=== PATIENT | male | born 1980 | race Caucasian/White ===

== ENCOUNTER 2022-02-06 08:52 | Outpatient (REF) | payer OTHER, SELFPAY ==
[2022-02-06 09:51] LABS: Hematocrit 45.4 % (42.0-52.0); Hemoglobin 15.9 g/dl (14.0-18.0); Mean Corpuscular Hemoglobin 33.6 pg (27.0-33.0); Mean Platelet Volume 8.9 fL (9.4-12.4); Platelet Count 234 X10*3/uL (160-400); Red Blood Count 4.73 X10*6/uL (4.60-5.80); Red Cell Distribution Width 13.2 % (11.0-16.0); White Blood Count 5.8 X10*3/uL (4.8-10.8)
[2022-02-06 10:28] LABS: Alanine Aminotransferase 62 U/L (0-40); Albumin Level 4.6 g/dL (3.5-5.0); Alkaline Phosphatase 67 U/L (39-117); Anion Gap 11 (12-20); Aspartate Amino Transferase 32 U/L (5-37); Bilirubin Total 0.4 mg/dL (0.0-1.0); Blood Urea Nitrogen 9 mg/dL (9-16); Calcium 9.6 mg/dL (8.4-10.2); Carbon Dioxide 33 mmol/L (22-29); Chloride 103 mmol/L (96-108); Cholesterol 210 mg/dL; Estimated Glomerular Filt Rate > 60; Glucose Fasting 94 mg/dL (60-99); HDL Cholesterol 52 mg/dL; Iron 141 mcg/dL (45-160); LDL Cholesterol Calculated 147 mg/dl; Percent Iron Saturation 39 % (15-50); Potassium 4.8 mmol/L (3.3-5.1); Sodium 142 mmol/L (135-145); Total Iron Binding Capacity 359 mcg/dL (228-428); Total Protein 6.8 g/dL (6.5-8.0); Triglycerides 57 mg/dL; Unsaturated Iron Binding 218 ug/dL
[2022-02-06 10:43] LABS: Estimated Average Glucose 85 mg/dL; Hemoglobin A1c % 4.6 %
[2022-02-06 10:52] LABS: TSH reflex Free T4 1.32 uIU/mL (0.32-4.0)
[2022-02-06 10:59] LABS: Phenytoin Dilantin 29.1 ug/mL (10.0-20.0)
== END 2022-02-06 08:53 | disposition home or self-care (01) ==
LOC: HO.LAB 08:52
PROVIDERS: PCP Physician Assistant; Visit Provider Physician Assistant
DX: Z13.29 Encounter for screening for other suspected endocrine disorder (principal); Z13.220 Encounter for screening for lipoid disorders; G40.909 Epilepsy, unspecified, not intractable, without status epilepticus; D50.9 Iron deficiency anemia, unspecified
CPT/HCPCS: 36415; 80053; 80061; 80185; 83036; 83540; 84443; 85027

== ENCOUNTER 2022-02-14 11:52 | Outpatient (REF) | payer OTHER, SELFPAY ==
[2022-02-14 14:39] LABS: Phenytoin Dilantin 27.5 ug/mL (10.0-20.0)
== END 2022-02-14 11:53 | disposition home or self-care (01) ==
LOC: HO.LAB 11:52
PROVIDERS: PCP Physician Assistant; Visit Provider Physician Assistant
DX: G40.909 Epilepsy, unspecified, not intractable, without status epilepticus (principal)
CPT/HCPCS: 36415; 80185

== ENCOUNTER → 2022-04-07 08:12 | Outpatient (BNVA) | payer OTHER, SELFPAY | PROVIDERS: PCP Physician Assistant; Visit Provider Psychiatry & Neurology Neurology | DX: G40.909 Epilepsy, unspecified, not intractable, without status epilepticus (principal); F32.A Depression, unspecified; F41.9 Anxiety disorder, unspecified; Z79.899 Other long term (current) drug therapy | CPT/HCPCS: 99202 ==

== ENCOUNTER 2022-04-21 14:01 | Outpatient (REF) | payer OTHER, SELFPAY ==
--- NOTE | ~2022-04-21 | MR_ITS ---
EXAMINATION: MR BRAIN WITHOUT AND WITH CONTRAST CLINICAL INFORMATION: 42-year-old with epilepsy, unspecified, not intractable, without status epilepticus. COMPARISON: None TECHNIQUE: Multiplanar, multisequence MRI of the brain was obtained before and after the intravenous administration of 7 mL Gadavist. FINDINGS: Brain Volume: Within normal limits within the limitations of qualitative assessment. Structural: Incidental tiny cavum septum pellucidum. Brain and Meninges: DWI sequence demonstrates no restricted diffusion to suggest acute or subacute cerebral ischemia. Gradient refocused imaging demonstrates no evidence for hemorrhage, hemosiderin staining or abnormal mineral deposition. Payton-white matter differentiation is preserved. No intracranial mass lesions, extra-axial fluid collections, significant space-occupying process or mass effect are identified. The brain parenchyma is normal in signal intensity. The mesial temporal lobe structures are bilaterally symmetric and normal in morphology and signal. Ventricles and Subarachnoid Spaces: The ventricular system and subarachnoid spaces are within normal limits without hydrocephalus. Orbital Structures: The visualized orbital structures are grossly unremarkable within the limitations of the study. Vascular: Signal voids are noted in the visualized major intracranial vessels. Osseous Structures, Sinuses/Mastoids, Extracranial Soft Tissues: Unremarkable MR/MR head/brain wo/w con IMPRESSION: Normal MRI of the brain without and with contrast.
== END 2022-04-21 14:02 | disposition home or self-care (01) ==
LOC: HO.MRI 14:01
PROVIDERS: Visit Provider Psychiatry & Neurology Neurology
DX: G40.909 Epilepsy, unspecified, not intractable, without status epilepticus (principal); F32.A Depression, unspecified; F41.9 Anxiety disorder, unspecified
CPT/HCPCS: 70553; A9585

== ENCOUNTER → 2022-05-21 14:50 | Outpatient (BNVA) | payer OTHER, SELFPAY | PROVIDERS: PCP Physician Assistant; Visit Provider Psychiatry & Neurology Neurology | DX: G40.909 Epilepsy, unspecified, not intractable, without status epilepticus (principal); F41.9 Anxiety disorder, unspecified; F32.A Depression, unspecified; Z79.899 Other long term (current) drug therapy | CPT/HCPCS: 99212 ==

== ENCOUNTER 2023-02-19 08:36 | Outpatient (REF) | payer OTHER, SELFPAY ==
[2023-02-19 09:23] LABS: Hematocrit 40.7 % (42.0-52.0); Hemoglobin 14.2 g/dl (14.0-18.0); Mean Corpuscular HGB Conc 34.9 g/dl (31.0-36.0); Mean Corpuscular Hemoglobin 32.8 pg (27.0-33.0); Mean Platelet Volume 9.2 fL (9.4-12.4); Platelet Count 210 X10*3/uL (160-400); Red Blood Count 4.33 X10*6/uL (4.60-5.80); Red Cell Distribution Width 13.2 % (11.0-16.0); White Blood Count 5.3 X10*3/uL (4.8-10.8)
[2023-02-19 10:19] LABS: Valproate 54.6 mcg/mL (50.0-100.0)
[2023-02-19 10:34] LABS: Alanine Aminotransferase 73 U/L (0-40); Alkaline Phosphatase 53 U/L (39-117); Anion Gap 10 (12-20); Aspartate Amino Transferase 43 U/L (5-37); Bilirubin Total 0.9 mg/dL (0.0-1.0); Blood Urea Nitrogen 13 mg/dL (9-16); Calcium 8.8 mg/dL (8.4-10.2); Carbon Dioxide 29 mmol/L (22-29); Chloride 110 mmol/L (96-108); Cholesterol 148 mg/dL; Estimated Glomerular Filt Rate > 60; Glucose Fasting 80 mg/dL (60-99); HDL Cholesterol 39 mg/dL; LDL Cholesterol Calculated 100 mg/dl; Potassium 3.9 mmol/L (3.3-5.1); Sodium 145 mmol/L (135-145); Total Protein 5.6 g/dL (6.5-8.0); Triglycerides 49 mg/dL
[2023-02-19 10:41] LABS: TSH reflex Free T4 0.84 uIU/mL (0.32-4.0)
[2023-02-25 16:58] LABS: Lamotrigine Lamictal 3.3 mcg/mL (2.5-15.0)
== END 2023-02-19 08:37 | disposition home or self-care (01) ==
LOC: HO.LAB 08:36
PROVIDERS: PCP Physician Assistant; Visit Provider Physician Assistant
DX: Z13.29 Encounter for screening for other suspected endocrine disorder (principal); E78.9 Disorder of lipoprotein metabolism, unspecified; G40.909 Epilepsy, unspecified, not intractable, without status epilepticus; Z79.899 Other long term (current) drug therapy
CPT/HCPCS: 36415; 80053; 80061; 80164; 80175; 84443; 85027

== ENCOUNTER 2023-05-28 07:10 | Outpatient (AMB) | payer OTHER, SELFPAY ==
--- NOTE | 2023-05-28 07:12 | A.OFFPC_ITS ---
Intake Visit Reasons: Anxiety follow-up [phone] Allergies No Known Allergies Allergy (Verified 05/28/23 07:20) Medication List - Last Reconciled 05/28/23 by YANELI Alvarez blood pressure test kit-medium As directed divalproex ER (Depakote ER) 1,500 mg PO DAILY lamotrigine 37.5 mg PO BID lisinopril 5 mg PO DAILY Tobacco use date assessed: 05/28/23 Dental Screening Dental Screen Date: 05/28/23 Did you have a dental visit in the last 12 months?: Yes Did you have a dental problem in the last 6 months where you did not have access to dental care?: No Was dental information given to patient?: Patient has dentist HPI HPI Comments History of Present Illness Details Patient is a 43 year male here today for Telehealth Follow up.? Patient has a past medical history significant for depression, anxiety, seizure disorder, tobacco dependency, hypertension and history of alcohol use disorder. Magdiel martin: psychiatrist, was on zolofot x1 week and, patient reports he did like the way it made him feel and he discontinued the medication. Patient reports that he had very low energy difficulty focusing while on the medication. Patient states has upcoming with psychiatry to further discuss medication for anxiety. Patient continues to follow with therapist Dr. Jacques. Patient requesting a medication that is short-acting that helps him manage his anxiety do bring his brain function down. Patient reports he discussed starting hydroxyzine with his neurologist for anxiety management. Patient also reports recent admission to [facility] 05/11- for 3 day EEG monitoring which showed 4 seziures at right temporal onset. Patient reports his sezuire medication doses were increased. Patient continues to follow with Dr. Pace neurologist at [facility]. r [facility] Medical History Femur fracture, right Family History (Updated 05/28/23 @ 07:13 by Teresa Morales [facility]) Mother Depression Mental health disorder Social History (Updated 02/18/23 @ 16:15 by Rigoberto Mitchell PA-C) Housing: Condominium Alcohol intake: former Year quit: 2011 Patient Tobacco Use Status: Former Tobacco user Tobacco use type: Smokeless Tobacco e-Cigarette/Vaping Use: Never Used Second Hand Smoke Exposure: Yes Substance Use Type: Marijuana service: No Current occupational status: unemployed and disabled Current occupational exposures/hazards: No Cognitive needs: Yes Hearing needs: No Vision needs: No Questionnaire PHQ-9 Over the last 2 weeks, how often have you been bothered by any of the following problems? 1. Little interest or pleasure in doing things: not at all 2. Feeling down, depressed, or hopeless: not at all 3. Trouble falling or staying asleep, or sleeping too much: not at all 4. Feeling tired or having little energy: not at all 5. Poor appetite or overeating: not at all 6. Feeling bad about yourself - or that you are a failure or have let yourself or your family down: not at all 7. Trouble concentrating on things, such as reading the newspaper or watching television: not at all 8. Moving or speaking so slowly that other people could have noticed. Or the opposite - being so fidgety or restless that you have been moving around a lot more than usual: not at all 9. Thoughts that you would be better off or of hurting yourself in some way: not at all Total score: 0 Depression Screening Interpretation: Negative 44434 - PHQ-9 Billing: Yes Source: Developed by Drs. Luiz Virgen, Ramesh Story and colleagues, with an educational jorge from [employer]. Thrive Questionnaire Date Thrive assessed: 10/21/22 AUDIT C Alcohol Use Questionnaire (AUDIT-C) 1. How often do you have a drink containing alcohol?: Never 3. How often do you have six or more drinks on one occasion?: Never Total Score: 0 Score Reviewed/Action Taken: No OLIVERIO-7 AMB Questionnaire OLIVERIO-7 Date OLIVERIO - 7 assessed: 02/18/23 Source: Developed by Madison Gore Kurt Kroenke and colleagues, with an educational jorge from [employer]. Review of Systems Neuro Reports confusion and Reports memory loss (due to recent 3 day EEG and s/p 4 seizures while inpatient) Psych Reports anxiety, Reports confusion and Reports memory loss (due to recent 3 day EEG and s/p 4 seizures while inpatient) Physical exam (Primary Care) Vital Signs: unable to complete as this is Telehealth appointment Tobacco/Smoking Status: Tobacco use Status Tobacco use date assessed 05/28/23 05/28/23 07:15 Patient Tobacco Use Status Former Tobacco user 05/28/23 07:15 Tobacco use type Smokeless Tobacco 05/28/23 07:15 e-Cigarette/Vaping Use Never Used 05/28/23 07:15 PHQ-9: PHQ-9 Score PHQ-9: Total score 0 05/28/23 07:27 Depression Screening Interpretation: Negative Thrive Assessment: Date of Thrive Assessment Date Thrive assessed 10/21/22 05/28/23 07:15 Const General: confusion Orientation/consciousness: confusion Neuro General: confusion Telehealth Telehealth Location of provider rendering services: practice address Location of patient: address on file Patient Identification confirmed using: Name, : Yes Telehealth method: voice only (Android) Patient verbally consented to treatment: Yes Patient verbally consented to billing insurance company: Yes Patient informed of any privacy concerns related to visit: Yes Minutes spent on Phone/Video with Pt.: 14 Assessment and Plan Assessment & Plan (1) Anxiety: Code(s): F41.9 - Anxiety disorder, unspecified Plan: Will send hydroxyzine 25 mg t.i.d. as needed to patient's pharmacy. Patient advised to continue to follow with psychiatry and therapist. (2) HTN (hypertension): Code(s): I10 - Essential (primary) hypertension Qualifiers: Hypertension type: primary hypertension Qualified Code(s): I10 - Essential (primary) hypertension Plan: Continue on lisinopril 5 mg daily. Follow low-salt diet and exercise. (3) Seizure disorder: Code(s): G40.909 - Epilepsy, unspecified, not intractable, without status epilepticus Plan: Continue on the Depakote 1500 mg daily and [id number] daily. Continue to follow with Dr. Pace Neurologist. Plan Scheduled follow-up with PCP or follow-up sooner if needed. Medications: New hydroxyzine HCl 25 mg PO TID PRN 20 tabs 0RF itching F41.9 - Anxiety disorder, unspecified Coding Level of Care Code Tele Est Pt Level 4 (41296) Diagnoses Anxiety F41.9 HTN (hypertension) I10 Hypertension type: primary hypertension Seizure disorder G40.909
== END 2023-05-28 07:33 | disposition home or self-care (01) ==
LOC: HO.HMGH 07:10
PROVIDERS: PCP Physician Assistant; Visit Provider Nurse Practitioner Family
DX: F41.9 Anxiety disorder, unspecified (principal); I10 Essential (primary) hypertension; G40.909 Epilepsy, unspecified, not intractable, without status epilepticus
CPT/HCPCS: 99214

== ENCOUNTER 2023-09-01 15:30 | Outpatient (AMB) | payer OTHER, SELFPAY ==
--- NOTE | 2023-09-01 15:37 | MHC.PC.OV ---
Vital Signs 09/01/23 15:38 Height 5 ft 10 in Weight 172 lb 8 oz BMI 24.7 BP 116/82 Blood Pressure Location Lt brachial Position Sitting Pulse 87 Pulse Source Pulse Oximeter Pulse Oximetry (%) 98 Oxygen Delivery Method Room Air Intake Visit Reasons: f/u HTN / Sz disorder Websphere Developer Required: No Accompanied by: Self / Same As Patient Allergies No Known Allergies Allergy (Verified 09/01/23 16:17) Medication List - Last Reconciled 09/01/23 by Rigoberto Mitchell PA-C blood pressure test kit-medium As directed divalproex ER (Depakote ER) 1,500 mg PO DAILY lamotrigine 37.5 mg PO BID lisinopril 5 mg PO DAILY Tobacco use date assessed: 05/28/23 Dental Screening Dental Screen Date: 09/01/23 Did you have a dental visit in the last 12 months?: Yes Did you have a dental problem in the last 6 months where you did not have access to dental care?: No Was dental information given to patient?: Patient has dentist HPI f/u HTN / Sz disorder HPI Details Patient is a 43 y ear male here to y for follow-up vi sit .? Patient gonsalez s a past medical h istory significant for depression, a nxiety, seizure di sorder, tobacco de pendency, hyperten monica and history o f alcohol use diso rder. . Seizure d isorder:? Patient now followed by Ne urology at [facility] ( DR oliveira) and has been started o n lamictal 25mg b. i.d.. He reports h e recently had wha t he thinks was a seizure (December 29) . Patient has had EEGs in brain MRI is without si gnificant findings Did have EEG test ing the summer 023 He has been to ld by his neurolog ist of seizure cavazos s not last more th an 2 minutes then do not seek medica l attention. No n otable trigger to his seizure disord er at this time. W kevin hospitalized for a seizure and April of 2023 he di d have testing darin t did show epilept ic epileptic in hi s left poor region . He reports he re cently did have a seizure and still in a postictal sta ge. Interestingl y he feels very hy per injury after h is seizures. .. A nxiety:? talks to a psyciatrist and a mental mental th erapist. He feels his anxiety is we ll controlled with out medication at this time ? Of not e patient does hav e a distant histor y of alcoholism.? .. Hypertension: ? Patient continue s on low-dose lyn nopril with good e ffect.? Today's bl ood pressure in of fice acceptable. H e otherwise denies any chest discomf ort, dizziness or vision issues. .. Chewing tobacco u se:? Has resolved and completely sta ffed chewing tobac co..? Laboratory Tests 02/06/22 02/19/23 02/19/23 09:24 08:59 08:59 RBC 4.33 L Hgb 14.2 Creatinine 0.91 AST 32 43 H Valproic Acid 54.6 PFSH Medical History Femur fracture, right Family History Mother Depression Mental health disorder [facility] Alcohol intake: former Year quit: 2012 Patient Tobacco Use Status: Former Tobacco user Tobacco use type: Smokeless Tobacco e-Cigarette/Vaping Use: Never Used Second Hand Smoke Exposure: Yes Substance Use Type: Marijuana service: No Current occupational status: unemployed and disabled Current occupational exposures/hazards: No Cognitive needs: Yes Hearing needs: No Vision needs: No Questionnaire PHQ-9 Over the last 2 weeks, how often have you been bothered by any of the following problems? 1. Little interest or pleasure in doing things: not at all 2. Feeling down, depressed, or hopeless: not at all 3. Trouble falling or staying asleep, or sleeping too much: not at all 4. Feeling tired or having little energy: not at all 5. Poor appetite or overeating: not at all 6. Feeling bad about yourself - or that you are a failure or have let yourself or your family down: not at all 7. Trouble concentrating on things, such as reading the newspaper or watching television: not at all 8. Moving or speaking so slowly that other people could have noticed. Or the opposite - being so fidgety or restless that you have been moving around a lot more than usual: not at all 9. Thoughts that you would be better off or of hurting yourself in some way: not at all Total score: 0 Depression Screening Interpretation: Negative Depression Screening Done: Yes 62105 - PHQ-9 Billing: Yes Source: Developed by Drs. Luiz Virgen, Ramesh Story and colleagues, with an educational jorge from [employer]. Thrive Questionnaire Date Thrive assessed: 10/21/22 OLIVERIO-7 AMB Questionnaire OLIVERIO-7 Date OLIVERIO - 7 assessed: 02/18/23 Source: Developed by Drs. Luiz Virgen, Madison Beasley, Ramesh Ortega and colleagues, with an educational jorge from [employer]. Review of Systems Const Denies headache(s) Eyes Denies loss of vision ENT Denies vertigo, Denies dizziness, Denies headache(s) and Denies sore throat Card Denies chest pain, Denies leg edema and Denies lightheadedness Resp Denies cough, Denies hemoptysis and Denies wheezing GI Denies abdominal pain, Denies melena, Denies constipation, Denies diarrhea and Denies vomiting Denies dysuria, Denies urinary frequency and Denies urinary urgency Musc Denies arthralgias, Denies joint swelling, Denies numbness and Denies tingling Neuro Denies Abnormal speech present, Denies behavioral changes, Denies vertigo, Denies dizziness, Denies headache(s), Denies loss of vision, Denies memory loss, Denies numbness, Reports convulsions, Reports seizure-like activity and Denies tingling Psych Denies anxiety, Denies behavioral changes, Denies depression, Denies memory loss and Denies panic attacks Angelito/Lymph Denies easy bleeding and Denies easy bruising Aller/Immun Denies wheezing Physical exam (Primary Care) Vital Signs: Last Vital Signs Pulse 87 09/01/23 15:38 BP 116/82 09/01/23 15:38 Pulse Ox 98 09/01/23 15:38 Oxygen Delivery Method Room Air 09/01/23 15:38 BMI result Body Mass Index 24.7 Tobacco/Smoking Status: Tobacco use Status Tobacco use date assessed 05/28/23 09/01/23 15:39 Patient Tobacco Use Status Former Tobacco user 09/01/23 15:39 Tobacco use type Smokeless Tobacco 09/01/23 15:39 e-Cigarette/Vaping Use Never Used 09/01/23 15:39 PHQ-9: PHQ-9 Score PHQ-9: Total score 0 09/01/23 16:19 Depression Screening Interpretation: Negative Thrive Assessment: Date of Thrive Assessment Date Thrive assessed 10/21/22 09/01/23 15:39 Const General: healthy appearing, no acute distress, alert and awake Nutritional Appearance: well nourished Orientation/consciousness: oriented to person, oriented to place and oriented to time HENMT Ears: TM's normal bilaterally General nose exam: Normal nasal mucous membranes and turbinates present Eyes Conjunctivae: conjunctivae normal Sclerae: sclerae normal Pupils: Equal, round and reactive pupils present Neck Neck: Yes no lymphadenopathy and Yes no JVD Thyroid: Thyroid normal Carotids: no bruits Resp Effort & Inspection: normal respiratory effort and not tachypneic Auscultation: no crackles, no rales, no rhonchi and no wheezes Cardio Rate: regular rate Rhythm: regular rhythm Heart sounds: no murmurs and normal S1 and S2 GI Palpation (GI): Soft to palpation, nontender, no hepatomegaly and no splenomegaly Auscultation: normal bowel sounds Skin General skin exam: no rashes or lesions noted and dry skin Neuro General: oriented to person, oriented to place and oriented to time Cranial nerves: Yes Equal, round and reactive pupils present Speech: No Abnormal speech present Gait exam (Neuro): Normal gait present Motor exam (neuro): no tremor noted Extrem Right upper extremity: full ROM Left upper extremity: full ROM Right lower extremity: full ROM; no edema Left lower extremity: full ROM; no edema Psych Other: Mild tremor noted Mental Status: mental status grossly normal Speech and movement: Normal speech and movement present Affect: normal affect Attitude: cooperative Thought process: Normal thought process present Assessment and Plan Assessment & Plan (1) Seizure disorder: Code(s): G40.909 - Epilepsy, unspecified, not intractable, without status epilepticus Plan: Patient still reporting having seizures even with the use of divalproex and lamotrigine. Reports his neurologist is following his liver enzymes and did have an elevated ammonia level which is thought to be due to his seizure medication. Most recent testing showing left-sided temporal epileptic activity. Brain MRIs without any mass or lesions. No notable cause of his seizure as of yet. Recently did have a seizure and feels he is still in a postictal state. He feels somewhat shaky and tremulous which is often the case after he has a seizure. Seems to be somewhat of a GROUP ACTIVITIES AIDE-sympathetic response --> Will supply him with propanolol 10 mg to use during this time. (2) Anxiety: Code(s): F41.9 - Anxiety disorder, unspecified Plan: Has been working with a mental health therapist. Is now off all anxiety medication and feels he is able to manage his anxiety on his own. He is not interested in starting any medication at this time as he is still trying to work with his neurologist about his seizure disorder. (3) HTN (hypertension): Code(s): I10 - Essential (primary) hypertension Qualifiers: Hypertension type: primary hypertension Qualified Code(s): I10 - Essential (primary) hypertension Plan: Blood pressure acceptable today in office. Will continue his current dose of lisinopril with goal blood pressures to remain below 140/90. Orders: Orders Ammonia 09/01/23 G40.909 - Epilepsy, unspecified, not intractable, without status epilepticus Microalbumin, Random (w Creat) 09/01/23 I10 - Essential (primary) hypertension Comprehensive [place]. Panel Fast 09/01/23 I10 - Essential (primary) hypertension Complete Blood Count no Diff 09/01/23 I10 - Essential (primary) hypertension Medications: New propranolol 10 mg PO BID 10 days PRN 20 tabs 0RF heart palpatations I10 - Essential (primary) hypertension Refilled lisinopril 5 mg PO DAILY 90 tabs 1RF I10 - Essential (primary) hypertension Coding Level of Care Code Est Pt Level 4 (95982) Diagnoses Seizure disorder G40.909 Anxiety F41.9 Primary hypertension I10 Hypertension type: primary hypertension
[2023-09-01 15:38] VITALS: BP 116/82; PULSE 87; O2SAT 98; BMI 24.7
== END 2023-09-01 16:37 | disposition home or self-care (01) ==
PROVIDERS: Visit Provider Physician Assistant
DX: G40.909 Epilepsy, unspecified, not intractable, without status epilepticus (principal); F41.9 Anxiety disorder, unspecified; I10 Essential (primary) hypertension; Z87.891 Personal history of nicotine dependence
CPT/HCPCS: 99214

== ENCOUNTER 2023-09-04 09:02 | Outpatient (REF) | payer OTHER, SELFPAY ==
[2023-09-04 09:27] LABS: Hematocrit 44.2 % (42.0-52.0); Hemoglobin 15.1 g/dl (14.0-18.0); Mean Corpuscular HGB Conc 34.2 g/dl (31.0-36.0); Mean Corpuscular Hemoglobin 33.2 pg (27.0-33.0); Mean Corpuscular Volume 97.1 fL (80.0-98.0); Mean Platelet Volume 9.4 fL (9.4-12.4); Platelet Count 241 X10*3/uL (160-400); Red Blood Count 4.55 X10*6/uL (4.60-5.80); Red Cell Distribution Width 13.1 % (11.0-16.0); White Blood Count 5.9 X10*3/uL (4.8-10.8)
[2023-09-04 09:37] LABS: Ammonia 22 umol/L (13-55)
[2023-09-04 09:58] LABS: Creatinine Urine 165.48 mg/dL; Microalbum/Creatinine Ratio Ur 3.6 ug/mg cr (<30)
[2023-09-04 10:02] LABS: Alanine Aminotransferase 49 U/L (0-40); Albumin Level 3.7 g/dL (3.5-5.0); Alkaline Phosphatase 47 U/L (39-117); Anion Gap 10 (12-20); Aspartate Amino Transferase 32 U/L (5-37); Bilirubin Total 0.8 mg/dL (0.0-1.0); Blood Urea Nitrogen 10 mg/dL (9-16); Carbon Dioxide 29 mmol/L (22-29); Chloride 106 mmol/L (96-108); Estimated Glomerular Filt Rate > 60; Glucose Fasting 86 mg/dL (60-99); Potassium 4.4 mmol/L (3.3-5.1); Sodium 141 mmol/L (135-145); Total Protein 6.3 g/dL (6.5-8.0)
== END 2023-09-04 09:03 | disposition home or self-care (01) ==
LOC: HO.LAB 09:02
PROVIDERS: PCP Physician Assistant; Visit Provider Physician Assistant
DX: G40.909 Epilepsy, unspecified, not intractable, without status epilepticus (principal); I10 Essential (primary) hypertension
CPT/HCPCS: 36415; 80053; 82043; 82140; 82570; 85027

== ENCOUNTER 2024-03-22 13:27 | Outpatient (AMB) | payer MEDICARE, SELFPAY ==
[2024-03-22 13:57] VITALS: BP 100/80; PULSE 84; O2SAT 96; BMI 26.8
--- NOTE | 2024-03-22 13:57 | MHC.PC.OV ---
Vital Signs 03/22/24 13:57 Height 5 ft 10 in Weight 186 lb 8 oz BMI 26.8 BP 100/80 Blood Pressure Location Lt brachial Position Sitting Pulse 84 Pulse Source Pulse Oximeter Pulse Oximetry (%) 96 Oxygen Delivery Method Room Air Intake Visit Reasons: PE/Tremors F/U Allergies No Known Allergies Allergy (Verified 03/22/24 14:21) Medication List - Last Reconciled 03/22/24 by Rigoberto Mitchell PA-C divalproex ER (Depakote ER) 1,500 mg PO DAILY lamotrigine 37.5 mg PO BID lisinopril 5 mg PO DAILY propranolol 10 mg PO BID PRN 10 days Tobacco use date assessed: 05/28/23 Dental Screening Dental Screen Date: 09/01/23 HPI PE/Tremors F/U HPI Details Patient is a 44-year-old male here today for routine annual physical .? Patient has a past medical history significant for depression, anxiety, seizure disorder, tobacco dependency, hypertension and history of alcohol use disorder. .Seizure disorder:? Patient now followed by Neurology at [facility] ( DR oliveira) and has been started on lamictal 37.5 mg b.i.d and divalproex 1500 daily.. He has not had a seizure in about 3 months. Patient has had EEGs in brain MRI is without significant findings He has been told by his neurologist of seizure does not last more than 2 minutes then do not seek medical attention. No notable trigger to his seizure disorder at this time. Of note he has developed a tremor that seems to be intentional and not at rest. He is spoken to his neurologist about this though no treatment at this time. ..Anxiety:? talks to a psyciatrist and a mental mental therapist. He feels his anxiety is well controlled without medication at this time ? Of note patient does have a distant history of alcoholism.? .. ..Hypertension:? Patient continues on low-dose lisinopril with good effect.? Today's blood pressure in office acceptable. He otherwise denies any chest discomfort, dizziness or vision issues. .. ..Chewing tobacco use: He reports he still does use chewing tobacco a few times a week.. colon cancer screening; willing to do colonoscopy vaccines: up-to-date COVID vaccine , needs up-to-date tetanus vaccine [facility] Medical History Femur fracture, right Family History Mother Depression Mental health disorder Social History [facility] Alcohol intake: former Year quit: 2012 Patient Tobacco Use Status: Former Tobacco user Tobacco use type: Smokeless Tobacco e-Cigarette/Vaping Use: Never Used Second Hand Smoke Exposure: Yes Substance Use Type: Marijuana service: No Current occupational status: unemployed and disabled Current occupational exposures/hazards: No Cognitive needs: Yes Hearing needs: No Vision needs: No Questionnaire PHQ-9 Over the last 2 weeks, how often have you been bothered by any of the following problems? 1. Little interest or pleasure in doing things: not at all 2. Feeling down, depressed, or hopeless: not at all 3. Trouble falling or staying asleep, or sleeping too much: not at all 4. Feeling tired or having little energy: not at all 5. Poor appetite or overeating: not at all 6. Feeling bad about yourself - or that you are a failure or have let yourself or your family down: not at all 7. Trouble concentrating on things, such as reading the newspaper or watching television: not at all 8. Moving or speaking so slowly that other people could have noticed. Or the opposite - being so fidgety or restless that you have been moving around a lot more than usual: not at all 9. Thoughts that you would be better off or of hurting yourself in some way: not at all Total score: 0 Depression Screening Interpretation: Negative Depression Screening Done: Yes 81411 - PHQ-9 Billing: Yes Source: Developed by Drs. Luiz Virgen, Madison Beasley, Ramesh Ortega and colleagues, with an educational jorge from [employer]. Thrive Questionnaire Date Thrive assessed: 03/22/24 I am a: Patient What is your living situation today?: I have a steady place to live Within the past 12 months, did the food you bought not last and you didn't have the money to get more?: Never true Within the past 12 months, did you worry whether your food would run out before you got money to buy more?: Never true Do you have trouble paying for medicines?: No Do you have trouble getting transportation to medical appointments?: No Do you have trouble paying your heating and electricity bill?: No Do you have trouble taking care of your child, family member or friend?: No Do you have trouble with day-to-day activities such as bathing, preparing meals, shopping, managing finances, etc.?: No Are you currently unemployed and looking for a job?: No Are you interested in more education?: No Please select the resources that you would like help with: None Currently or been in a relationship where the following occur: no concerns reported THRIVE Score: 0 AUDIT C Alcohol Use Questionnaire (AUDIT-C) 1. How often do you have a drink containing alcohol?: Never 3. How often do you have six or more drinks on one occasion?: Never Total Score: 0 Score Reviewed/Action Taken: No OLIVERIO-7 AMB Questionnaire OLIVERIO-7 Date OLIVERIO - 7 assessed: 03/22/24 Feeling nervous, anxious, or on edge: 3 = Nearly every day Not being able to stop or control worryin = Nearly every day Worrying too much about different things: 3 = Nearly every day Trouble relaxin = Nearly every day Being so restless that it is hard to sit still: 3 = Nearly every day Becoming easily annoyed or irritable: 3 = Nearly every day Feeling afraid as if something awful might happen: 0 = Not at all Total OLIVERIO-7 score (0-4 normal; 5-9 mild; 10-14 moderate; 15-21 severe): 18 Source: Developed by Drs. Luiz Virgen, Madison Beasley, Ramesh Ortega and colleagues, with an educational jorge from [employer]. OLIVERIO-7 Assessment Billing OLIVERIO-7 Assessment Tool: OLIVERIO-7 Assessment 09233 Review of Systems Const Denies body aches, Denies chills, Denies excessive sweating, Denies fatigue, Denies fever(s) and Denies headache(s) Eyes Denies blurry vision ENT Denies dysphagia, Denies vertigo, Denies dizziness, Denies headache(s), Denies hearing loss and Denies tinnitus Card Denies chest pain, Denies chest pain with activity, Denies syncope, Denies irregular heart rhythm and Denies dyspnea Resp Denies chest congestion, Denies cough, Denies hemoptysis, Denies dyspnea and Denies wheezing GI Denies abdominal pain, Denies melena, Denies hematochezia, Denies coffee ground emesis, Denies dysphagia, Denies diarrhea, Denies nausea and Denies vomiting Denies difficulty urinating, Denies dysuria, Denies urinary frequency, Denies urinary hesitancy and Denies urinary urgency Musc Denies arthralgias, Denies limited range of motion, Denies muscle cramps and Denies muscle weakness Skin/Breast Denies rash and Denies skin ulcer Neuro Denies Abnormal speech present, Denies confusion, Denies vertigo, Denies dizziness, Denies syncope, Denies headache(s), Denies memory loss and Denies seizure-like activity Psych Denies anxiety, Denies confusion, Denies depression, Denies memory loss, Denies panic attacks and Denies paranoia Endo Denies excessive sweating, Denies fatigue, Denies flushing, Denies polydipsia and Denies polyuria Aller/Immun Denies wheezing Physical exam (Primary Care) Vital Signs: Last Vital Signs Pulse 84 03/22/24 13:57 BP 100/80 03/22/24 13:57 Pulse Ox 96 03/22/24 13:57 Oxygen Delivery Method Room Air 03/22/24 13:57 BMI result Body Mass Index 26.8 Tobacco/Smoking Status: Tobacco use Status Tobacco use date assessed 05/28/23 03/22/24 14:01 Patient Tobacco Use Status Former Tobacco user 03/22/24 14:01 Tobacco use type Smokeless Tobacco 03/22/24 14:01 e-Cigarette/Vaping Use Never Used 03/22/24 14:01 PHQ-9: PHQ-9 Score PHQ-9: Total score 0 03/22/24 16:54 Depression Screening Interpretation: Negative Thrive Assessment: Date of Thrive Assessment Date Thrive assessed 03/22/24 03/22/24 14:01 Currently or been in a relationship where the following occur: no concerns reported Const General: cooperative, comfortable, no acute distress, alert and awake; No confusion Orientation/consciousness: oriented to person, oriented to place, patient oriented x3 and No confusion HENMT Head: Yes normocephalic Ears: external ears normal and TM's normal bilaterally Face and sinus: No sinus tenderness Mouth: Normal oral and palatal mucosa present and tongue normal Teeth and gingiva: dentition normal and gingiva normal Throat: Yes posterior oropharynx normal, Yes tonsils normal and Yes uvula midline Eyes Conjunctivae: conjunctivae normal Sclerae: sclerae normal Pupils: Equal, round and reactive pupils present EOM: EOMs intact bilaterally Direct Ophthalmoscopy: No no photophobia Neck Neck: Yes no lymphadenopathy, No tender and Yes no JVD Thyroid: Thyroid normal Carotids: no bruits Chest Chest palpation & inspection: no tenderness Resp Effort & Inspection: normal respiratory effort, no audible wheezes, not labored and no stridor Auscultation: no crackles, no rales, no rhonchi and no wheezes Cardio Jugular venous distension: no JVD Rate: regular rate, not bradycardic and not tachycardic Rhythm: regular rhythm Bruits: no carotid bruits Peripheral pulses: Peripheral pulses 2+ throughout GI Inspection: Yes normal to inspection, No abdominal wall ecchymosis and No visible herniation Palpation (GI): Soft to palpation, nontender, no guarding, not rigid and No hepatosplenomegaly present Auscultation: normoactive bowel sounds General: Yes no CVA tenderness Back/Spine/Pelvis Back: no CVA tenderness and No back tenderness Cervical Spine: cervical ROM normal Thoracic/Lumbar Spine: thoracic and lumbar spine normal to inspection, straight leg raise negative bilaterally, No thoraco-lumbar ROM limited and No lumbar spinal tenderness Skin Lesions: no lesions Rashes: no rashes Wounds: no wounds Neuro Other: INTENTIONAL TREMOR NOTED General: oriented to person, oriented to place, patient oriented x3, CN's II-XI intact bilaterally and No confusion Cranial nerves: Yes Equal, round and reactive pupils present and Yes Normal accommodation reflex present Cognition (Neuro): normal cognition Speech: No Abnormal speech present Gait exam (Neuro): Normal gait present Motor exam (neuro): 5/5 motor strength present throughout and Tremors during motor activity present Extrem Right upper extremity: full ROM; no cyanosis Left upper extremity: full ROM; no cyanosis Right lower extremity: no edema Left lower extremity: no edema Psych Appearance: grossly normal Mental Status: mental status grossly normal Affect: normal affect Attitude: cooperative Thought process: Normal thought process present Immunizations Boostrix Tdap 2.5 Lf unit-8 mcg-5 Lf/0.5 mL intramuscular syringe Performing Provider: Rigoberto Mitchell PA-C Performing Location: [facility] [place] [facility] Administered by: JE Fuentes on 03/22/24 14:48 Dose Route Admin Location Dispensed Lot Number Expiration Date NDC Methodologist 0.5 mL IM Left Deltoid 0.5 mL [id number] 05/19/26 74440-521-25 [employer] VIS Given Date VIS Provided VIS Publication Date 03/22/24 Single Vaccine 21 Eligibility Eligibility Date Funding Source Not VFC Eligible 03/22/24 Private Assessment and Plan Assessment & Plan (1) Annual physical exam: Code(s): Z00.00 - Encounter for general adult medical examination without abnormal findings (2) Seizure disorder: Code(s): G40.909 - Epilepsy, unspecified, not intractable, without status epilepticus Plan: Patient still reporting having seizures even with the use of divalproex and lamotrigine. Reports his neurologist is following his liver enzymes and did have an elevated ammonia level which is thought to be due to his seizure medication. Most recent testing showing left-sided temporal epileptic activity. Brain MRIs without any mass or lesions. No notable cause of his seizure as of yet. HAS NOT A SEIZURE IN NEARLY 3 MONTHS (3) Anxiety: Code(s): F41.9 - Anxiety disorder, unspecified Plan: Has been working with a mental health therapist. Is now off all anxiety medication and feels he is able to manage his anxiety on his own. He is not interested in starting any medication at this time as he is still trying to work with his neurologist about his seizure disorder. (4) HTN (hypertension): Code(s): I10 - Essential (primary) hypertension Qualifiers: Hypertension type: primary hypertension Qualified Code(s): I10 - Essential (primary) hypertension Plan: Blood pressure acceptable today in office. Will continue his current dose of lisinopril with goal blood pressures to remain below 140/90. (5) Colon cancer screening: Code(s): Z12.11 - Encounter for screening for malignant neoplasm of colon (6) Chewing tobacco nicotine dependence: Code(s): F17.220 - Nicotine dependence, chewing tobacco, uncomplicated Qualifiers: Substance use status: uncomplicated Qualified Code(s): F17.220 - Nicotine dependence, chewing tobacco, uncomplicated Plan: We did briefly discuss chewing tobacco and patient does understand he needs to completely quit. Does use chewing tobacco a few times a week and is trying to cut down the amount and frequency he is using. Orders: Orders Microalbumin, Random (w Creat) 03/22/24 I10 - Essential (primary) hypertension Comprehensive [place]. Panel Fast 03/22/24 I10 - Essential (primary) hypertension Lipid Panel 03/22/24 E78.9 - Disorder of lipoprotein metabolism, unspecified TDaP Immunization 03/22/24 Z12.11 - Encounter for screening for malignant neoplasm of colon, Z23 - Encounter for immunization Referrals Gastroenterology Referral Z12.11 - Encounter for screening for malignant neoplasm of colon Medications: Discontinued propranolol Discontinued Reason: Doctor's Order 10 mg PO BID 10 days PRN 20 tabs 0RF heart palpatations I10 - Essential (primary) hypertension Patient Instructions: Goal: To remain seizure-free, blood pressure to remain below 140/90. Barriers: Adherence to physical activity and healthy eating habits Coding Level of Care Code Est Pt Prev Care 40-64y(66484) Diagnoses Annual physical exam Z00.00 Seizure disorder G40.909 Anxiety F41.9 Primary hypertension I10 Hypertension type: primary hypertension Colon cancer screening Z12.11 Chewing tobacco nicotine dependence without complication F17.220 Substance use status: uncomplicated Additional Codes OLIVERIO-7 Assessment Billing - OLIVERIO-7 Assessment Tool: OLIVERIO-7 Assessment 66374 ([id number])
== END 2024-03-22 16:22 | disposition home or self-care (01) ==
PROVIDERS: PCP Physician Assistant; Visit Provider Physician Assistant
DX: Z23 Encounter for immunization (principal)
CPT/HCPCS: 90471; 90715; 99214

== ENCOUNTER 2024-03-30 09:17 | Outpatient (REF) | payer MEDICARE, MEDICAID, SELFPAY ==
[2024-03-30 11:08] LABS: Alanine Aminotransferase 24 U/L (0-40); Albumin Level 4.2 g/dL (3.5-5.0); Alkaline Phosphatase 61 U/L (39-117); Anion Gap 12 (12-20); Aspartate Amino Transferase 25 U/L (5-37); Bilirubin Total 0.5 mg/dL (0.0-1.0); Blood Urea Nitrogen 8 mg/dL (9-16); Calcium 9.8 mg/dL (8.4-10.2); Carbon Dioxide 31 mmol/L (22-29); Chloride 105 mmol/L (96-108); Cholesterol 148 mg/dL (<200); Estimated Glomerular Filt Rate > 60; Glucose Fasting 87 mg/dL (60-99); HDL Cholesterol 35 mg/dL (>40); LDL Cholesterol Calculated 94 mg/dL (<100); Potassium 4.4 mmol/L (3.3-5.1); Sodium 144 mmol/L (135-145); Total Protein 6.5 g/dL (6.5-8.0); Triglycerides 98 mg/dL (<150)
== END 2024-03-30 09:18 | disposition home or self-care (01) ==
LOC: HO.LAB 09:17
PROVIDERS: PCP Physician Assistant; Visit Provider Physician Assistant
DX: E78.9 Disorder of lipoprotein metabolism, unspecified (principal); I10 Essential (primary) hypertension
CPT/HCPCS: 36415; 80053; 80061

== ENCOUNTER 2024-07-11 09:43 | Outpatient (AMB) | payer MEDICARE, SELFPAY ==
[2024-07-11 09:46] VITALS: BP 118/90; PULSE 84; O2SAT 97; BMI 26.9
--- NOTE | 2024-07-11 09:46 | MHC.OFFVIS ---
Vital Signs 07/11/24 09:46 Height 5 ft 10 in Weight 187 lb 6.287 oz BMI 26.9 BP 118/90 H Blood Pressure Location Rt brachial Position Sitting Pulse 84 Pulse Source Pulse Oximeter Pulse Oximetry (%) 97 Oxygen Delivery Method Room Air Intake Visit Reasons: Colonoscopy Screening Intake Note: Pato presents in office today for a scheduled colo consult. CC; Pt confirms that this is an initial, routine priority colo procedure. Pt reports that they are concerned about possibility of seizures, although, pt has no documented medication interactions to be concerned with. Pt does have documented hx of seizures. Pt would like to have procedure earlier in the morning if possible based on the medications and the routine that they are taking currently. 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 male with past medical history of hypertension and seizure disorder is here today for pre colonoscopy screening.? Patient was sent to us by his PCP.? This is his first colonoscopy screening.? Patient denies any gastrointestinal symptoms in the past or at present.? Denies any personal or family history of gastrointestinal disease, colon polyps, or CRC.? Denies history of difficulty with sedation or anesthesia in the past.? Negative for history of sleep apnea.? Denies any history of cardiac, renal, pulmonary, or hepatic disease.?? No history of infectious? diseases like hepatitis A, B, C, HIV or tuberculosis.? Patient is not on any anticoagulation [facility] Medical History Femur fracture, right Family History Mother Depression Mental health disorder Social History Housing: Condominium Alcohol intake: former Year quit: 2011 Patient Tobacco Use Status: Former Tobacco user Tobacco use type: Smokeless Tobacco e-Cigarette/Vaping Use: Never Used Second Hand Smoke Exposure: Yes Substance Use Type: Marijuana service: No Current occupational status: unemployed and disabled Current occupational exposures/hazards: No Cognitive needs: Yes Hearing needs: No Vision needs: No Review of Systems Const Denies weight gain and Denies weight loss ENT Reports no additional complaints, Denies dysphagia and Denies odynophagia Card Reports no additional complaints Resp Reports no additional complaints GI Denies abdominal pain, Denies belching, Denies melena, Denies bloating, Denies change in bowel habits, Denies dysphagia, Denies excessive flatus, Denies dyspepsia, Denies heartburn, Denies diarrhea, Denies loose stools, Denies nausea, Denies odynophagia and Denies vomiting Reports no additional complaints Musc Reports no additional complaints Neuro Reports no additional complaints Psych Reports no additional complaints Endo Reports no additional complaints Physical Exam Vital Signs: Last Vital Signs Pulse 84 07/11/24 09:46 BP 118/90 H 07/11/24 09:46 Pulse Ox 97 07/11/24 09:46 Oxygen Delivery Method Room Air 07/11/24 09:46 BMI result Body Mass Index 26.9 Const General: healthy appearing, no acute distress and well developed Nutritional Appearance: well nourished Orientation/consciousness: patient oriented x3 Resp Effort & Inspection: normal respiratory effort, able to speak in complete sentences, no tracheal deviation and symmetric chest movement Auscultation: clear to auscultation bilaterally Cardio Rate: regular rate GI Inspection: Yes normal to inspection and No distended Palpation (GI): Soft to palpation, not firm, nontender and No hepatosplenomegaly present Auscultation: normal bowel sounds General: Yes no CVA tenderness Back/Spine/Pelvis Back: no CVA tenderness Skin General skin exam: elasticity normal, turgor normal and dry skin Neuro General: patient oriented x3 Psych Appearance: grossly normal Mental Status: mental status grossly normal Assessment & Plan Assessment & Plan (1) Colon cancer screening: Code(s): Z12.11 - Encounter for screening for malignant neoplasm of colon Category: Medical Plan Patient denies any GI, cardiac or respiratory symptoms.? Denies any issues with anesthesia in the past.? Denies any history of sleep apnea.? No history infectious diseases in the past or present.? Not on any anticoagulation therapy.? Patient has a history of seizure for over 10 years. Sees neurologist in [place] Dr. Pace. Has appointment with him on September 13. Patient will talk to him about being cleared for procedure. Last seizure 6 months ago. Patient is currently taking divalproex and lamotrigine. No family or personal history of colon cancer or polyps.? Patient denies melena, hematochezia, unintentional weight loss or ribbon like stools.? Discussed at length the pre-procedure,? prep, diet & medications as well as what to expect prior, during and after the procedure.?? Stressed the importance of good bowel prep.? Recommended the use of Vaseline or Calmoseptine OTC & baby wipes with bowel movements to promote comfort.? ?Patient verbalizes understanding and agrees to plan of care.? He was given the opportunity to ask questions and all questions answered.? We will see him after the procedure.? Medications: New polyethylene glycol 3350 (Miralax) As directed by gastroenterology department at [facility] 238 grams PO ONCE 238 grams 0RF Z12.11 - Encounter for screening for malignant neoplasm of colon bisacodyl (Dulcolax (bisacodyl)) take 4 tabs at noon the day before your colonoscopy 20 mg (4 x 5 mg) PO ONCE 1 day 4 tabs 0RF Z12.11 - Encounter for screening for malignant neoplasm of colon Coding Level of Care Code New Pt Level 3 (45771) Diagnoses Colon cancer screening Z12.11 Time Spent (min) 40 Comment 30 minutes spent with patient and additional 10 minutes spent reviewing his records
== END 2024-07-11 10:34 | disposition home or self-care (01) ==
PROVIDERS: PCP Physician Assistant; Visit Provider Nurse Practitioner Family
DX: Z01.818 Encounter for other preprocedural examination (principal); Z12.11 Encounter for screening for malignant neoplasm of colon
CPT/HCPCS: 99024

== ENCOUNTER → 2024-07-11 09:43 | Outpatient (BNVA) | payer MEDICARE, SELFPAY | PROVIDERS: PCP Physician Assistant; Visit Provider Nurse Practitioner Family | DX: Z01.818 Encounter for other preprocedural examination (principal) | CPT/HCPCS: 99212 ==

== ENCOUNTER 2024-09-21 13:51 | Outpatient (AMB) | payer MEDICARE, MEDICAID, SELFPAY ==
[2024-09-21 14:22] VITALS: BP 122/84; PULSE 100; O2SAT 99; BMI 27.1
--- NOTE | 2024-09-21 14:22 | MHC.PC.OV ---
Vital Signs 09/21/24 14:22 Height 5 ft 10 in Weight 189 lb BMI 27.1 BP 122/84 Blood Pressure Location Lt brachial Position Sitting Pulse 100 Pulse Source Pulse Oximeter Pulse Oximetry (%) 99 Oxygen Delivery Method Room Air Intake Visit Reasons: f/u Sz disorder Inventory Technician Required: No Accompanied by: Self / Same As Patient Allergies No Known Allergies Allergy (Verified 09/21/24 14:39) Medication List - Last Reconciled 09/21/24 by Rigoberto Mitchell PA-C bisacodyl (Dulcolax (bisacodyl)) 20 mg (4 x 5 mg) PO ONCE 1 day divalproex ER 250 mg PO DAILY lamotrigine 37.5 mg PO BID lisinopril 5 mg PO DAILY polyethylene glycol 3350 (Miralax) 238 grams PO ONCE topiramate 100 mg PO BID Tobacco use date assessed: 09/21/24 Dental Screening Dental Screen Date: 09/21/24 Did you have a dental visit in the last 12 months?: Yes Did you have a dental problem in the last 6 months where you did not have access to dental care?: No Was dental information given to patient?: Patient has dentist HPI f/u Sz disorder HPI Details Patient is a 44-year-old male here today for follow-up visit .? Patient has a past medical history significant for depression, anxiety, seizure disorder, tobacco dependency, hypertension and history of alcohol use disorder. .Seizure disorder:? Patient now followed by Neurology at [facility] ( DR oliveira) and has been started on lamictal 37.5 mg b.i.d and divalproex 1500 daily.. He has not had a seizure in about 2 months. Patient has had EEGs in brain MRI is without significant findings. He has been recently started on topiramate over the last 2 weeks does report getting better sleep and being less hungry. ..Anxiety:? talks to a psyciatrist and a mental mental therapist. He feels his anxiety is well controlled without medication at this time ? Of note patient does have a distant history of alcoholism.? .. ..Hypertension:? Patient continues on low-dose lisinopril with good effect.? Today's blood pressure in office acceptable. He otherwise denies any chest discomfort, dizziness or vision issues. .. [facility] Medical History Femur fracture, right Family History Mother Depression Mental health disorder Social History [facility] Alcohol intake: former Year quit: 2012 Patient Tobacco Use Status: Former Tobacco user Tobacco use type: Smokeless Tobacco e-Cigarette/Vaping Use: Never Used Second Hand Smoke Exposure: Yes Substance Use Type: Marijuana service: No Current occupational status: unemployed and disabled Current occupational exposures/hazards: No Cognitive needs: Yes Hearing needs: No Vision needs: No Questionnaire Thrive Questionnaire Date Thrive assessed: 03/22/24 OLIVERIO-7 AMB Questionnaire OLIVERIO-7 Date OLIVERIO - 7 assessed: 03/22/24 Source: Developed by Drs. Luiz Virgen, Madison Beasley, Ramesh Ortega and colleagues, with an educational jorge from [employer]. Review of Systems Const Denies headache(s) Eyes Denies loss of vision ENT Denies vertigo, Denies dizziness, Denies headache(s) and Denies sore throat Card Denies chest pain, Denies leg edema and Denies lightheadedness Resp Denies cough, Denies hemoptysis and Denies wheezing GI Denies abdominal pain, Denies melena, Denies constipation, Denies diarrhea and Denies vomiting Denies dysuria, Denies urinary frequency and Denies urinary urgency Musc Denies arthralgias, Denies joint swelling, Denies numbness and Denies tingling Neuro Denies Abnormal speech present, Denies behavioral changes, Denies vertigo, Denies dizziness, Denies headache(s), Denies loss of vision, Denies memory loss, Denies numbness and Denies tingling Psych Denies anxiety, Denies behavioral changes, Denies depression, Denies memory loss and Denies panic attacks Angelito/Lymph Denies easy bleeding and Denies easy bruising Aller/Immun Denies wheezing Physical exam (Primary Care) Vital Signs: Last Vital Signs Pulse 100 09/21/24 14:22 BP 122/84 09/21/24 14:22 Pulse Ox 99 09/21/24 14:22 Oxygen Delivery Method Room Air 09/21/24 14:22 BMI result Body Mass Index 27.1 Tobacco/Smoking Status: Tobacco use Status Tobacco use date assessed 09/21/24 09/21/24 14:28 Patient Tobacco Use Status Former Tobacco user 09/21/24 14:23 Tobacco use type Smokeless Tobacco 09/21/24 14:23 e-Cigarette/Vaping Use Never Used 09/21/24 14:23 Thrive Assessment: Date of Thrive Assessment Date Thrive assessed 03/22/24 09/21/24 14:23 Const General: healthy appearing, no acute distress, alert and awake Nutritional Appearance: well nourished Orientation/consciousness: oriented to person, oriented to place and oriented to time HENMT Ears: TM's normal bilaterally General nose exam: Normal nasal mucous membranes and turbinates present Eyes Conjunctivae: conjunctivae normal Sclerae: sclerae normal Pupils: Equal, round and reactive pupils present Neck Neck: Yes no lymphadenopathy and Yes no JVD Thyroid: Thyroid normal Carotids: no bruits Resp Effort & Inspection: normal respiratory effort and not tachypneic Auscultation: no crackles, no rales, no rhonchi and no wheezes Cardio Rate: regular rate Rhythm: regular rhythm Heart sounds: no murmurs and normal S1 and S2 GI Palpation (GI): Soft to palpation, nontender, no hepatomegaly and no splenomegaly Auscultation: normal bowel sounds Skin General skin exam: no rashes or lesions noted and dry skin Neuro Other: MILD NOTABLE INTENTIONAL TREMOR General: oriented to person, oriented to place and oriented to time Cranial nerves: Yes Equal, round and reactive pupils present Speech: No Abnormal speech present Gait exam (Neuro): Normal gait present Extrem Right upper extremity: full ROM Left upper extremity: full ROM Right lower extremity: full ROM; no edema Left lower extremity: full ROM; no edema Psych Mental Status: mental status grossly normal Speech and movement: Normal speech and movement present Affect: normal affect Attitude: cooperative Thought process: Normal thought process present Coding Level of Care Code Est Pt Level 4 (70886) Diagnoses Primary hypertension I10 Hypertension type: primary hypertension Seizure disorder G40.909 Borderline high cholesterol E78.9 Assessment & Plan Assessment & Plan (1) HTN (hypertension): Code(s): I10 - Essential (primary) hypertension Category: Medical Qualifiers: Hypertension type: primary hypertension Qualified Code(s): I10 - Essential (primary) hypertension Plan: Patient's blood pressure was acceptable today in office. Will continue current dose of lisinopril with goal blood pressure to remain below 140/90. (2) Seizure disorder: Code(s): G40.909 - Epilepsy, unspecified, not intractable, without status epilepticus Category: Medical Plan: Patient continues to follow [facility] neurology (Dr. Oliveira) and is on several different seizure medication for his epilepsy. Was recently started Topamax. He reports his last seizure was about 2 months ago (3) Borderline high cholesterol: Code(s): E78.9 - Disorder of lipoprotein metabolism, unspecified Category: Medical Plan: Patient has a history of borderline high cholesterol and has made changes in his diet and lifestyle which has helped him manage his high cholesterol. Most recent lipid panel showing excellent control of his total cholesterol and LDL. Will continue to follow Orders: Orders Lipid Panel Today E78.9 - Disorder of lipoprotein metabolism, unspecified Comprehensive [place]. Panel Fast Today E78.9 - Disorder of lipoprotein metabolism, unspecified Complete Blood Count no Diff Today I10 - Essential (primary) hypertension Microalbumin, Random (w Creat) Today I10 - Essential (primary) hypertension
== END 2024-09-21 14:47 | disposition home or self-care (01) ==
PROVIDERS: PCP Physician Assistant; Visit Provider Physician Assistant
DX: I10 Essential (primary) hypertension (principal); G40.909 Epilepsy, unspecified, not intractable, without status epilepticus; E78.9 Disorder of lipoprotein metabolism, unspecified

== ENCOUNTER → 2024-09-21 13:51 | Outpatient (BNVA) | payer MEDICARE, SELFPAY | PROVIDERS: PCP Physician Assistant; Visit Provider Physician Assistant | DX: I10 Essential (primary) hypertension (principal); E78.9 Disorder of lipoprotein metabolism, unspecified; G40.909 Epilepsy, unspecified, not intractable, without status epilepticus | CPT/HCPCS: 99212 ==

== ENCOUNTER 2025-03-28 14:14 | Outpatient (AMB) | payer MEDICARE, SELFPAY ==
--- NOTE | 2025-03-28 14:37 | A.OFFVIS_ITS ---
Intake Vital Signs 03/28/25 14:46 Height 5 ft 10 in Weight 180 lb 2 oz BMI 25.8 BP 112/82 Blood Pressure Location Lt brachial Position Sitting Pulse 84 Pulse Source Pulse Oximeter Temp 97.1 F Temp Source Temporal Artery Scan Pulse Oximetry (%) 99 Oxygen Delivery Method Room Air Intake Visit Reasons: AWV G0438/ PE Warp Tension Tester Required: No Accompanied by: Self / Same As Patient Allergies No Known Allergies Allergy (Verified 03/28/25 15:10) Medication List - Last Reconciled 03/28/25 by Rigoberto Mithcell PA-C bisacodyl (Dulcolax (bisacodyl)) 20 mg (4 x 5 mg) PO ONCE 1 day divalproex ER 250 mg PO DAILY lamotrigine 37.5 mg PO BID lisinopril 5 mg PO DAILY polyethylene glycol 3350 (Miralax) 238 grams PO ONCE topiramate 100 mg PO BID HPI AWV G0438/ PE HPI Details Patient is a 45-year-old male here today for annual wellness visit .? Patient has a past medical history si gnificant for depression, anxiety, seizure disorder, tobacco dependency, hypertension and history of alcohol use disorder. Today we discussed patient's [employer] [place] [place] of care, end of life planning and comprehensive care plan which was scanned patient's documents. colon cancer screening; scheduled this year vaccines: up-to-date COVID vaccine , up-to-date with tetanus vaccine, declines flu vaccines HPI Comments History of Present Illness Details reviewed past medical history- yes reviewed surgical / hospitalization history- yes reviewed current medications- yes reviewed family history- yes home safety throw rugs? grab bars? raised toilet seat? working smoke detectors? activities of daily living difficulty bathing or showering? difficulty dressing? difficulty using the toilet? difficulty getting in and out of bed? difficulty walking? receives help from other person's with any of the above tasks? instrumental activities of daily living uses telephone - gets to place out of walking distance- go shopping for groceries- repairs own meals- does own minor home maintenance- does own laundry- does own housework- manages own money- currently takes medication- end of life planning discussed advanced directives- yes advanced directives on file? discussed wishes expressed in advanced directives. fall risk have you had any falls with injuries in the past year? have you had 2 or more falls in the past year? fall risk assessment: [facility] Medical History (Updated 03/28/25 @ 15:23 by Rigoberto Mitchell PA-C) Seizures Anxiety Borderline high cholesterol Depression HTN (hypertension) Family History Mother Depression Mental health disorder Social History Housing: Condominium Alcohol intake: former Year quit: 2011 Patient Tobacco Use Status: Former Tobacco user Tobacco use type: Smokeless Tobacco e-Cigarette/Vaping Use: Never Used Second Hand Smoke Exposure: Yes Substance Use Type: Marijuana service: No Current occupational status: unemployed and disabled Current occupational exposures/hazards: No Cognitive needs: Yes Hearing needs: No Vision needs: No Questionnaire Medicare Wellness Checkup [age] 65-68 What gender do you identify with?: male During the past 4 weeks, how much have you been bothered by emotional problems such as feeling anxious, depressed, irritable, sad or downhearted, and blue?: not at all During the past 4 weeks, has your physical & emotional health limited your social activities with family, friends, neighbors, or groups?: not at all During the past 4 weeks, how much bodily pain have you generally had?: no pain During the past 4 weeks, was someone available to help you if you needed & wanted help?: yes, as much as I wanted During the past 4 weeks, what was the hardest physical activity you could do for at least 2 minutes?: moderate Can you get to places out of walking distance without help? (For eg., can you travel alone on buses, taxis or drive your car?): No Can you go shopping for groceries or clothes without someone's help?: No Can you prepare your own meals?: Yes Can you do your housework without help?: Yes Because of any health problems, do you need the help of another person with your personal care needs such as eating, bathing, dressing or getting around the house?: No Can you handle your own money without help?: Yes During the past 4 weeks, how would you rate your health in general?: very good During the past 4 weeks how have things been going for you?: pretty well Are you having difficulties driving your car?: not applicable, I don't use a car Do you always fasten your seat belt when you are in a car?: yes, usually During past 4 weeks, have you been bothered by the following: never: Falling or dizzy when standing up, Sexual problems?, Trouble eating well?, Teeth or denture problems?, Problems using the telephone? and Tiredness or fatigue? Have you fallen 2 or more times in the past year?: No Are you afraid of falling?: No Are you a smoker?: no During the past 4 weeks, how many drinks of wine, beer, or other alcoholic beverages did you have?: no alcohol at all Do you exercise for about 20 minutes 3 or more times a week?: yes, all the time Have you been given information to help with the following?: yes: Hazards in your house that might hurt you? and yes: Keeping track of your medications? How often do you have trouble taking medicines the way you have been told to take them?: I always take medicine as prescribed How confident are you that you can control & manage most of your health problems?: very confident What is your race?: White Mini Mental State Exam (MMSE) Orientation What is the (year) (season) (date) (day) (month)?: year Where are we (state) (county) (town or city) (hospital) (floor)?: town or city Attention & Calculation (CHOOSE ONE) Spell WORLD backwards (DLROW): 4 letters Score Score: 6 Activity of Daily Living Bathing - sponge bath, tub bath or shower: receives no assistance (gets in/out by self, if usual bathing means Dressing - getting clothes from closets & drawers, including inner/outer garments & fasteners.: gets clothes & gets completely dressed without help Toileting - going to the 'toilet room' for urine/bowel elimination & cleaning self/arranging clothes: goes to toilet room, cleans self, arranges clothes without help Transfer: moves in & out of bed and chair without help (may use support object) Continence: controls urination/bowel movements completely by self Feeding: feeds self without help Total Score: 0 Information obtained from: patient Using telephone: independent Traveling: needs assistance Shopping: needs assistance Preparing meals: independent Housework: independent Taking medicine: independent Managing money: independent PHQ-9 Over the last 2 weeks, how often have you been bothered by any of the following problems? 1. Little interest or pleasure in doing things: not at all 2. Feeling down, depressed, or hopeless: not at all 3. Trouble falling or staying asleep, or sleeping too much: not at all 4. Feeling tired or having little energy: not at all 5. Poor appetite or overeating: not at all 6. Feeling bad about yourself - or that you are a failure or have let yourself or your family down: not at all 7. Trouble concentrating on things, such as reading the newspaper or watching television: not at all 8. Moving or speaking so slowly that other people could have noticed. Or the opposite - being so fidgety or restless that you have been moving around a lot more than usual: not at all 9. Thoughts that you would be better off or of hurting yourself in some way: not at all Total score: 0 Depression Screening Interpretation: Negative Depression Screening Done: Yes 91020 - PHQ-9 Billing: Yes Source: Developed by Drs. Luiz Virgen, Madison Beasley, Ramesh Ortega and colleagues, with an educational jorge from [employer]. Physical Exam Vital Signs: Last Vital Signs Temp 97.1 F 03/28/25 14:46 Pulse 84 03/28/25 14:46 BP 112/82 03/28/25 14:46 Pulse Ox 99 03/28/25 14:46 Oxygen Delivery Method Room Air 03/28/25 14:46 BMI result Body Mass Index 25.8 HEENT Other: hearing screening whisper test- pass Eyes Other: vision screening- 20 20 OS OS OU Other: urinary incontinence? no Neuro Other: balance Romberg- normal tandem walk test- able walk-in turned test- able rise from sit to stand- within 2 seconds Assessment & Plan Assessment & Plan (1) Annual wellness visit: Code(s): Z00.00 - Encounter for general adult medical examination without abnormal findings Plan: As per HPI Quality Reporting (2019) Depression/Bipolar (159/160/161/177) PHQ-9: Total score: 0 Coding Level of Care Code Medicare First (G0438) Diagnoses Annual wellness visit Z00.00 CPT Codes Advance Care Planning - Time spent: 1-15 minutes, not on file ([id number]) Additional Codes PHQ-9 - 12963 - PHQ-9 Billing: Yes ([id number]) Advance Care Planning Advance Care Planning discussion: Exists, not on file Date of discussion: 03/28/25 Forms completed: MOLST Time spent: 1-15 minutes, not on file Actual minutes spent: 2
[2025-03-28 14:46] VITALS: BP 112/82; PULSE 84; TEMP 36.2; O2SAT 99; BMI 25.8
== END 2025-03-28 15:19 | disposition home or self-care (01) ==
LOC: HO.HMCH 14:15
PROVIDERS: PCP Physician Assistant; Visit Provider Physician Assistant
DX: Z00.00 Encounter for general adult medical examination without abnormal findings (principal)

== ENCOUNTER → 2025-03-28 14:14 | Outpatient (BNVA) | payer MEDICARE, SELFPAY | PROVIDERS: PCP Physician Assistant; Visit Provider Physician Assistant | DX: Z00.00 Encounter for general adult medical examination without abnormal findings (principal); F32.A Depression, unspecified; F41.9 Anxiety disorder, unspecified; G40.909 Epilepsy, unspecified, not intractable, without status epilepticus; I10 Essential (primary) hypertension | CPT/HCPCS: 96127 ==

== ENCOUNTER 2025-04-26 08:32 | Outpatient (REF) | payer MEDICARE, SELFPAY ==
[2025-04-26 09:14] LABS: Hematocrit 43.0 % (42.0-52.0); Hemoglobin 15.3 g/dl (14.0-18.0); Mean Corpuscular HGB Conc 35.6 g/dl (31.0-36.0); Mean Corpuscular Hemoglobin 33.3 pg (27.0-33.0); Mean Corpuscular Volume 93.5 fL (80.0-98.0); NRBC Abs Auto 0.000 X10*3/uL (0.0-0.012); NRBC Pct Auto 0.0 /100WBC (0.0-0.2); Platelet Count 222 X10*3/uL (160-400); Red Blood Count 4.60 X10*6/uL (4.60-5.80); White Blood Count 8.2 X10*3/uL (4.8-10.8)
[2025-04-26 09:41] LABS: Alanine Aminotransferase 25 U/L (0-40); Albumin Level 4.7 g/dL (3.5-5.0); Alkaline Phosphatase 72 U/L (39-117); Anion Gap 12 (12-20); Aspartate Amino Transferase 26 U/L (5-37); Blood Urea Nitrogen 9 mg/dL (9-16); Calcium 9.1 mg/dL (8.4-10.2); Carbon Dioxide 22 mmol/L (22-29); Chloride 110 mmol/L (96-108); Cholesterol 167 mg/dL (<200); Estimated Glomerular Filt Rate > 60; HDL Cholesterol 40 mg/dL (>40); Potassium 4.2 mmol/L (3.3-5.1); Sodium 140 mmol/L (135-145); Total Protein 6.8 g/dL (6.5-8.0); Triglycerides 104 mg/dL (<150)
== END 2025-04-26 08:33 | disposition home or self-care (01) ==
LOC: HO.LAB 08:32
PROVIDERS: PCP Physician Assistant; Visit Provider Physician Assistant
DX: I10 Essential (primary) hypertension (principal); E78.9 Disorder of lipoprotein metabolism, unspecified
CPT/HCPCS: 36415; 80053; 80061; 82043; 82570; 85027